=== PATIENT | male | born 1985 | race Caucasian/White ===

== ENCOUNTER 2020-04-07 06:02 | Emergency (ER) | payer BC ==
[~2020-04-07] VITALS: Ht 177.8 cm; Wt 129.0 kg
[2020-04-07 06:50] LABS: BASO # 0.1 x10^3/uL (0.0-0.2); BASO % 1 % (0-3); EOS # 0.1 x10^3/uL (0.0-0.7); EOS % 1 % (0-3); HEMOGLOBIN 16.3 g/dL (13.0-17.5); LYMPH # 3.6 x10^3/uL (1.0-4.8); LYMPH % 41 % (24-48); MEAN CORPUSCULAR HEMOGLOBIN 27 pg (25-35); MEAN CORPUSCULAR HGB CONC 34 g/dL (31-37); MEAN CORPUSCULAR VOLUME 81 fL (79-100); MONO # 0.9 x10^3/uL (0.0-1.1); MONO % 10 % (0-9); NEUT # 4.2 x10^3uL (1.8-7.7); NEUT % 47 % (31-73); PLATELET COUNT 255 x10^3/uL (140-400); RED BLOOD COUNT 5.94 x10^6/uL (4.30-5.70); RED CELL DISTRIBUTION WIDTH 12.9 % (11.5-14.5); WHITE BLOOD COUNT 8.8 x10^3/uL (4.0-11.0)
--- NOTE | 2020-04-07 06:51 | PHYS DOC ---
Past History Past Medical History: Diabetes Past Surgical History: No Surgical History Alcohol Use: Occasionally General Adult EDM: Chief Complaint: CHEST PAIN HPI: HPI: Patient is a 34-year-old male who presented to ER today for evaluation of substernal chest pain that radiated to his back and up to his esophagus area started a few hours ago after he came home from work. Patient works at night, he came home from work and was about to go to sleep when he start having substernal chest pain, pain is aching in nature, hurt worse when he taking a deep breath or cough. Patient denies any trouble breathing., Patient denies any fever. Patient has history of pancreatitis in the past. Patient had a dry cough that he had this for about 5 years. Patient has history of hypertension and diabetes. Patient denies any immediate family members having history of he art disease. Patient denies any recent travel or operation. Patient is not a smoker. Patient denies being exposed to anybody who tested positive for COVID- 19. Review of Systems: Review of Systems: Constitutional: Denies fever or chills Eyes: Denies change in visual acuity HENT: Denies nasal congestion or sore throat Respiratory: Positive for dry cough, no trouble breathing. Cardiovascular: Positive for chest pain GI: Denies abdominal pain, nausea, vomiting, bloody stools or diarrhea : Denies dysuria Musculoskeletal: Denies back pain or joint pain Integument: Denies rash Neurologic: Denies headache, focal weakness or sensory changes Endocrine: Denies polyuria or polydipsia Lymphatic: Denies swollen glands Psychiatric: Denies depression or anxiety Heart Score: HEART Score for Chest Pain: HEART Score for Chest Pain Response (Comments) Value History Slighlty/Non-Suspicious 0 ECG Normal 0 Age < 45 0 Risk Factors 1 or 2 Risk Factors 1 Troponin < Normal Limit 0 Total 1 Risk Factors: Risk Factors: DM, Current or recent (<one month) smoker, HTN, HLP, family history of CAD, obesity. Risk Scores: Score 0 - 3: 2.5% MACE over next 6 weeks - Discharge Home Score 4 - 6: 20.3% MACE over next 6 weeks - Admit for Clinical Observation Score 7 - 10: 72.7% MACE over next 6 weeks - Early Invasive Strategies Allergies: Allergies: Allergies Coded Allergies Type Severity Reaction Last Updated Verified erythromycin base Allergy Unknown 04/07/20 Yes Physical Exam: PE: Constitutional: Well developed, well nourished, no acute distress, non-toxic appearance. [] HENT: Normocephalic, atraumatic, bilateral external ears normal, oropharynx moist, no oral exudates, nose normal. [] Eyes: PERRLA, EOMI, conjunctiva normal, no discharge. [] Neck: Normal range of motion, no tenderness, supple, no stridor. [] Cardiovascular:Heart rate regular rhythm, no murmur [] Lungs & Thorax: Bilateral breath sounds clear to auscultation [] Abdomen: Bowel sounds normal, soft, no tenderness, no masses, no pulsatile masses. [] Skin: Warm, dry, no erythema, no rash. [] Back: No tenderness, no CVA tenderness. [] Extremities: No tenderness, no cyanosis, no clubbing, ROM intact, no edema. [] Neurologic: Alert and oriented X 3, normal motor function, normal sensory function, no focal deficits noted. [] Psychologic: Affect normal, judgement normal, mood normal. [] Current Patient Data: Vital Signs: Vital Signs Date Time Temp Pulse Resp B/P (MAP) Pulse Ox O2 Delivery O2 Flow Rate FiO2 04/07/20 06:21 98.5 108 20 166/93 (117 97 Room Air EKG: EKG: EKG was done 627, heart rate 99 beats per minute, normal sinus rhythm, no ST segment elevation. Radiology/Procedures: Radiology/Procedures: [][address] [address] IMAGING REPORT Signed PATIENT: JAMILA RUBIO ACCOUNT: [id number] : 1985 LOCATION: ER AGE: 34 SEX: M EXAM STATUS: REG ER ORD. PHYSICIAN: GUILLERMINA BOGGS DO REASON: chest pain, soa, family history of blood clot disorder PROCEDURE: CT ANGIOGRAPHY CHEST Examination: CT ANGIOGRAPHY CHEST History: Reason: chest pain, soa, family history of blood clot disorder / Spl. Instructions: OMNI 350 100ML / History: Comparison/Correlation: None Findings: Axial images of chest were obtained following IV contrast according to pulmonary arteriography protocol. Sagittal and coronal reformatted images were provided. Maximum intensity projection images were provided. This exam is relatively limited due to suboptimal opacification of the pulmonary arterial vasculature at the peripheral branches. This may be related to transient introduction of contrast although the density of contrast within the thoracic aorta is below 200 Hounsfield units. There is no central pulmonary arterial thromboembolic disease identified within the main pulmonary artery or the right or left pulmonary artery. Evaluation more distally is mostly also very limited. Bony structures are unremarkable. No enlarged thoracic lymph nodes. No pleural or pericardial effusion. Subtle bilateral lower lobe diffuse groundglass appearance which may represent mild atelectasis is noted. No dense consolidations. No focal infiltrate. No pneumothorax. No pulmonary nodule or mass. No pericardial effusion. Fatty infiltration of the liver noted. Debris noted within the stomach. Impression: No main, right, or left pulmonary arterial thromboembolic disease. Evaluation more distally is mostly nondiagnostic. No focal infiltrate. PQRS Compliance Statement: One or more of the following individualized dose reduction techniques were utilized for this examination: 1. Automated exposure control 2. Adjustment of the mA and/or kV according to patient size 3. Use of iterative reconstruction technique Electronically signed by: Chadd Santiago MD (04/07/2020 8:04 AM) [id number] DICTATED AND SIGNED BY: CHADD SANTIAGO MD DATE: 04/07/2004 CC: NICOLÁS GONZALES MD; GUILLERMINA BOGGS DO ~ Course & Med Decision Making: Course & Med Decision Making Pertinent Labs and Imaging studies reviewed. (See chart for details) Patient felt much better after GI cocktail was given. His CT chest and lab work were normal except the hyperglycemia. His EKG was normal. He will be discharged home, he will need to follow up with a head of maintenance for outpatient stress test. Dragon Disclaimer: Dragon Disclaimer: This electronic medical record was generated, in whole or in part, using a voice recognition dictation system. Departure Departure: Impression: Primary Impression: Chest pain Additional Impressions: Hyperglycemia Gastritis Disposition: 01 HOME/RESIDENCE PRIOR TO ADM Condition: STABLE Referrals: NICOLÁS GONZALES MD (PCP) please follow up with your doctor for outpatient evaluation and follow up with a head of maintenance for outpatient stress test done. LEOBARDO ARCHER MD please call this head of maintenance for follow up care next week, outpatient stress test maybe needed. Patient Instructions: Chest Pain (Nonspecific), Gastritis, Adult, Hyperglycemia Additional Instructions: Thank you for visiting our Emergency Department. We appreciate you trusting us with your care. If any additional problems come up don't hesitate to return to visit us. Please follow up with your primary care provider so they can plan additional care if needed and know about the problem that you had. If symptoms worsen come back to the Emergency Department. Any concerning symptoms that start such as chest pain, shortness of air, weakness or numbness on one side of the body, running high fevers or any other concerning symptoms return to the ER. Scripts Omeprazole Magnesium (PRILOSEC OTC) 20 Mg Tablet.dr 1 TAB PO DAILY for gastritis for 30 Days, #30 TAB 0 Refills Prov: GUILLERMINA BOGGS DO 04/07/20 GUILLERMINA BOGGS DO April 07, 2020 06:51
[2020-04-07 06:56] LABS: CALCIUM 9.8 mg/dL (8.5-10.1); CREATININE 1.1 mg/dL (0.7-1.3); GFR 76.2; POTASSIUM 4.2 mmol/L (3.5-5.1)
[2020-04-07] MEDS ORDERED: LIDO:MAALOX 1:1 20 ML SINGLE DOSE. PO ONE (07:00)
[2020-04-07 07:08] LABS: ALBUMIN 3.8 g/dL (3.4-5.0); ALBUMIN/GLOBULIN RATIO 1.2 (1.0-1.7); TOTAL BILIRUBIN 0.4 mg/dL (0.2-1.0); TOTAL PROTEIN 6.9 g/dL (6.4-8.2)
--- NOTE | 2020-04-07 07:20 | RAD ---
PORTABLE CHEST 1V History: Chest pain. Shortness of breath. Comparison: None. Findings: Evaluation degraded due to technique. No consolidation or pleural effusion. Normal heart size. No pneumothorax. Impression: 1. No acute cardiopulmonary process. Electronically signed by: El Leonard DO (04/07/2020 7:18 AM) [id number]
[2020-04-07] MEDS ORDERED: IV NORMAL SALINE 1,000ML 1,000 ML IV ONE (07:30)
[2020-04-07] MEDS ORDERED: IOHEXOL 350 MG/ML 100 ML VIAL. IV ONE (07:30)
--- NOTE | 2020-04-07 08:07 | RAD ---
Examination: CT ANGIOGRAPHY CHEST History: Reason: chest pain, soa, family history of blood clot disorder / Spl. Instructions: OMNI 350 100ML / History: Comparison/Correlation: None Findings: Axial images of chest were obtained following IV contrast according to pulmonary arteriography protocol. Sagittal and coronal reformatted images were provided. Maximum intensity projection images were provided. This exam is relatively limited due to suboptimal opacification of the pulmonary arterial vasculature at the peripheral branches. This may be related to transient introduction of contrast although the density of contrast within the thoracic aorta is below 200 Hounsfield units. There is no central pulmonary arterial thromboembolic disease identified within the main pulmonary artery or the right or left pulmonary artery. Evaluation more distally is mostly also very limited. Bony structures are unremarkable. No enlarged thoracic lymph nodes. No pleural or pericardial effusion. Subtle bilateral lower lobe diffuse groundglass appearance which may represent mild atelectasis is noted. No dense consolidations. No focal infiltrate. No pneumothorax. No pulmonary nodule or mass. No pericardial effusion. Fatty infiltration of the liver noted. Debris noted within the stomach. Impression: No main, right, or left pulmonary arterial thromboembolic disease. Evaluation more distally is mostly nondiagnostic. No focal infiltrate. PQRS Compliance Statement: One or more of the following individualized dose reduction techniques were utilized for this examination: 1. Automated exposure control 2. Adjustment of the mA and/or kV according to patient size 3. Use of iterative reconstruction technique Electronically signed by: Chadd Bernal MD (04/07/2020 8:04 AM) [id number]
[2020-04-07 08:24] VITALS: BP 176/99
[2020-04-07] MEDS ORDERED: OMEP20TA63 PO (08:24)
--- NOTE | 2020-04-07 15:35 | EKG ---
[address] [address] Test Date: 2020-04-07 Test Time: 06:27:14 Pat Name: JAMILA RUBIO Department: Room: Gender: M [employer]: : 1985 Requested By: GUILLERMINA BOGGS Order Number: [id number] Reading MD: Anthony Blanco MD Measurements Intervals [place] Rate: 99 P: -9 IA: 156 QRS: -15 QRSD: 102 T: 3 QT: 324 QTc: 415 Interpretive Statements SINUS RHYTHM Electronically Signed On 04-08-2020 12:22:30 CDT by Anthony Blanco MD
== END 2020-04-07 08:35 | disposition home or self-care (01) ==
LOC: ER 06:02
DX: R07.2 Precordial pain (principal); K29.70 Gastritis, unspecified, without bleeding; E11.65 Type 2 diabetes mellitus with hyperglycemia; I10 Essential (primary) hypertension; Z88.1 Allergy status to other antibiotic agents
CPT/HCPCS: 36415; 71045; 71275; 80053; 83690; 83735; 83880; 84484; 85025; 85379; 85610; 85730; 93005; 96360; 99285-25; J7030